=== PATIENT | female | born 1985 | race Caucasian/White ===

== ENCOUNTER 2017-10-20 23:20 | Emergency (ER) | payer SELFPAY ==
[2017-10-21] MEDS ORDERED: Ketorolac INJ* 30 MG/ML 1 ML VIAL IV PUSH ONE (01:29)
[2017-10-21] MEDS ORDERED: Clindamycin 600 MG IVPREMIX(* 600 MG/50 ML SDV IV ONE (01:29)
[2017-10-21 02:06] LABS: ABS Basophils 0.1 10^3/ul (0-0.2); ABS Eosinophils 0 10^3/ul (0-0.6); ABS Lymphocytes 1.9 10^3/ul (1.0-4.8); ABS Monocytes 1.3 10^3/ul (0-0.8); ABS Neutrophils 7.6 10^3/ul (1.5-7.7); ABS Nucleated RBC 0 10^3/ul; Eosinophil % 0.3 % (0-6); Hematocrit 42 % (35-47); Hemoglobin 14.5 g/dl (12.0-16.0); Lymphocyte % 17.4 % (25-47); Mean Corpuscular HGB Conc 34 g/dl (31-36); Mean Corpuscular Hemoglobin 32 pg (27-31); Mean Corpuscular Volume 94 fL (80-97); Mean Platelet Volume 7 um3 (7.4-10.4); Nucleated Red Blood Cells % 0; Platelet Count 309 10^3/ul (150-450); Red Blood Count 4.54 10^6/ul (4.0-5.4); Red Cell Distribution Width 13 % (10.5-15); White Blood Count 10.9 10^3/ul (3.5-10.8)
[2017-10-21 02:23] LABS: EGFR Non-African American 92.4 (>60)
[2017-10-21 04:38] VITALS: BP 116/72
--- NOTE | 2017-10-21 08:25 | ED ---
Payton Hinson Gabriel, scribed for Gustavo Camarillo MD on 10/21/17 at 0134 . Skin Complaint - HPI Summary HPI Summary: This patient is a 32 year old F presenting to [facility] accompanied by her mother with a chief complaint of redness and pain to R forearm that began 3 days ago. Pt states her right forearm redness secondary injection of methadone into her arm, she also has one on her back that she attributes to her MRSA. The patient rates the pain 7/10 in severity. Pt states her arm is swollen, painful, and hot. - History of Current Complaint Chief Complaint: EDRashSkinAbscess Time Seen by Provider: 10/21/17 01:14 Stated Complaint: ABSCESS Hx Obtained From: Patient Onset/Duration: Still Present Skin Exposure Onset/Duration: Days Ago - 3 Timing: Constant Onset Severity: Mild Current Severity: Severe Pain Intensity: 7 Pain Scale Used: 0-10 Numeric Skin Location: Other: - forearm and back Character: Swelling, Painful - Allergy/Home Medications Allergies/Adverse Reactions: Allergies Allergy/AdvReac Type Severity Reaction Status Date / Time No Known Allergies Allergy Verified 10/20/17 23:34 PMH/Surg Hx/FS Hx/Imm Hx History: Denies: Hx Benign Prostatic Hyperplasia Neurological History: Denies: Hx CVA Infectious Disease History: Yes Infectious Disease History: Denies: Traveled Outside the [place] in Last 30 Days - Family History Known Family History: Positive: Hypertension - Social History Alcohol Use: Occasionally Hx Substance Use: Yes Substance Use Type: Reports: Heroin Review of Systems Positive: Other - at right fore arm Skin: Other - swelling and warmth to right forearm and back All Other Systems Reviewed And Are Negative: Yes Physical Exam - Summary Physical Exam Summary: Appearance: Well-appearing, no distress, Well-nourished Skin: on the left forearm 12x5 cm area of erythema warmth, mild TTP; 2x3cm area of induration and erythema to left scapula area; nontender; no drainage Head: Normal Head/Face inspection Eyes: Conjunctiva clear ENT: Normal inspection Neck: Supple, no nodes, no JVD. Respiratory: Lungs clear, Normal breath sounds, no respiratory distress Cardio: RRR, No murmur, pulses normal, brisk capillary refill Abdomen: soft, nontender, no guarding, no rebound Bowel sounds: present Musculoskeletal: Strength Intact/ ROM intact. No calf tenderness. No edema. Neuro: Alert, muscle tone normal, facial symmetry, speech normal, sensory/motor intact Psychological: Normal Triage Information Reviewed: Yes Vital Signs On Initial Exam: Initial Vitals Temp Pulse Resp BP Pulse Ox 99.6 F 111 18 111/78 100 10/20/17 23:30 10/20/17 23:30 10/20/17 23:30 10/20/17 23:30 10/20/17 23:30 Vital Signs Reviewed: Yes Diagnostics - Vital Signs Vital Signs Temp Pulse Resp BP Pulse Ox 10/20/17 23:30 99.6 F 111 18 111/78 100 - Laboratory Lab Results: Lab Results 10/21/17 10/21/17 10/21/17 Range/Units 01:50 01:50 03:12 WBC 10.9 H (3.5-10.8) 10^3/ul RBC 4.54 (4.0-5.4) 10^6/ul Hgb 14.5 (12.0-16.0) g/dl Hct 42 (35-47) % MCV 94 (80-97) fL MCH 32 H (27-31) pg MCHC 34 (31-36) g/dl RDW 13 (10.5-15) % Plt Count 309 (150-450) 10^3/ul MPV 7 L (7.4-10.4) um3 Neut % (Auto) 69.7 (38-83) % Lymph % (Auto) 17.4 L (25-47) % [place] % (Auto) 11.9 H (0-7) % Eos % (Auto) 0.3 (0-6) % Baso % (Auto) 0.7 (0-2) % Absolute Neuts (auto) 7.6 (1.5-7.7) 10^3/ul Absolute Lymphs (auto) 1.9 (1.0-4.8) 10^3/ul Absolute Monos (auto) 1.3 H (0-0.8) 10^3/ul Absolute Eos (auto) 0 (0-0.6) 10^3/ul Absolute Basos (auto) 0.1 (0-0.2) 10^3/ul Absolute Nucleated RBC 0 10^3/ul Nucleated RBC % 0 Sodium 129 L (133-145) mmol/L Potassium TNP 3.9 Chloride 95 L (101-111) mmol/L Carbon Dioxide 26 (22-32) mmol/L Anion Gap 8 (2-11) mmol/L BUN 16 (6-24) mg/dL Creatinine 0.73 (0.51-0.95) mg/dL Est GFR ( Amer) 118.8 (>60) Est GFR (Non-Af Amer) 92.4 (>60) BUN/Creatinine Ratio 21.9 H (8-20) Glucose 98 (70-100) mg/dL Calcium 9.5 (8.6-10.3) mg/dL Total Bilirubin 0.60 (0.2-1.0) mg/dL AST TNP 76 H ALT 114 H (7-52) U/L Alkaline Phosphatase 69 (34-104) U/L Total Protein 7.7 (6.4-8.9) g/dL Albumin 4.2 (3.2-5.2) g/dL Globulin 3.5 (2-4) g/dL Albumin/Globulin Ratio 1.2 (1-3) Result Diagrams: 10/21/17 01:50 10/21/17 03:12 Lab Statement: Any lab studies that have been ordered have been reviewed, and results considered in the medical decision making process. Re-Evaluation - Re-Evaluation First Eval Change: Improved - Pt erythema improved with IV Toradol and Clindamycin. pt pain improved. Pt cellulitis outlined. Plan for oral abx and close f/u in 2-3 days Course/Dx - Differential Diagnoses - Skin Complaint Differential Diagnoses: Abscess, Cellulitis, Contact Dermatitis, Eczema, Urticaria - Diagnoses Provider Diagnoses: Cellulitis of forearm, right Discharge - Discharge Plan Condition: Improved Disposition: HOME Prescriptions: Clindamycin HCl 450 mg PO TID 10 Days #30 capsule Ketorolac TAB * [Toradol TAB *] 10 mg PO Q6H PRN 3 Days #10 tab PRN Reason: Pain Patient Education Materials: Cellulitis (ED) Referrals: No Primary Care Phys,NOPCP [Primary Care Provider] - 2 Days () Additional Instructions: Please return to [facility] Department in 2-3 days for repeat skin evaluation. Images - Images Full Body (No Head): 1 - erythema, warmth;; TTP-mild; no induration or abscess formation 2 - 2x3cm abscess The documentation as recorded by the Payton marie Gabriel accurately reflects the service I personally performed and the decisions made by , Gustavo Camarillo MD.
--- NOTE | 2017-10-21 19:02 | ED ---
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 Pt was DC'd on Clindamycin 450tid x 10 days and toradol for pain, but pt could not afford the clindamycin, so called the ED today and asked for her RX's to be sent to a pharmacy where she could use urgent RX. Pt was seen briefly by me in the ED waiting room at approximately 6:30pm when I gave her the urgent RX form. The area of redness had been outlined by Dr. Camarillo and pt had received one dose of IV clindamycin in the ED. The redness had progressed 1cm outside the outlined area on the upper part of the outlined area. There was no lymphangitic streaking, and pt had no bony tenderness. Pt was able to fully flex and extend her right elbow. There was no open area, and no abscess in the outlined area. Pt had been without antibiotics for approximately 12 hrs. Pt stated she did not have fever, stated she was not vomiting. Pt was ambulatory without assistance and was accompanied by a female friend "who is like a mother". I explained to the pt that clindamycin is covered on the urgent RX, but that I would change the dosing to 300mg qid, to ensure coverage and increase frequency of dosing, hoping to fight infection. I also advised the pt that toradol was not covered by urgent RX, but that I could prescribe ibuprofen 600mg qid prn. Pt declined to sign in the ER at this time, wanting to give the antibiotics a chance to be effective. The new area of increased redness was outlined in black pen by me. Pt's friend stated that she would awaken pt at 0600 10/22/17 to assess the redness and swelling after the clindamycin and would determine if she needed to return to the ED. Pt was ambulatory at MD from this encounter, with her urgent RX, and [facility] Re-Evaluation - Re-Evaluation First Eval Change: Improved - DR CAMARILLO'S EVALUATION: Pt erythema improved with IV Toradol and Clindamycin. pt pain improved. Pt cellulitis outlined. Plan for oral abx and close f/u in 2-3 days Course/Dx - Course Course Of Treatment: DISCHARGE HOME. CONDITION STABLE - Diagnoses Provider Diagnoses: Cellulitis of forearm, right
== END 2017-10-21 04:37 | disposition home or self-care (01) ==
LOC: ED 23:20
DX: L03.113 Cellulitis of right upper limb (principal)
CPT/HCPCS: 36415; 80053; 85025; 99283; J1885

== ENCOUNTER 2017-10-23 13:37 | Inpatient (IN) | payer MEDICAID ==
[2017-10-23] MEDS ORDERED: NS 0.9% 1000 ML* 1,000 ML IV ONE (14:38)
[2017-10-23] MEDS ORDERED: Vancomycin(*) 1,000 MG in NS 0.9% 250 ML* 250 ML IVPB ONE (14:38)
[2017-10-23 16:02] LABS: ABS Basophils 0 10^3/ul (0-0.2); ABS Eosinophils 0 10^3/ul (0-0.6); ABS Lymphocytes 1.4 10^3/ul (1.0-4.8); ABS Monocytes 0.3 10^3/ul (0-0.8); ABS Neutrophils 3.4 10^3/ul (1.5-7.7); ABS Nucleated RBC 0 10^3/ul; Eosinophil % 0.6 % (0-6); Hematocrit 50 % (35-47); Hemoglobin 16.6 g/dl (12.0-16.0); Lymphocyte % 26.7 % (25-47); Mean Corpuscular HGB Conc 33 g/dl (31-36); Mean Corpuscular Hemoglobin 32 pg (27-31); Mean Corpuscular Volume 97 fL (80-97); Nucleated Red Blood Cells % 0.2; Red Blood Count 5.16 10^6/ul (4.0-5.4); Red Cell Distribution Width 13 % (10.5-15); White Blood Count 5.1 10^3/ul (3.5-10.8)
[2017-10-23 16:53] LABS: EGFR Non-African American 115.9 (>60)
[2017-10-23 18:37] LABS: Mean Platelet Volume 7 um3 (7.4-10.4); Platelet Count 332 10^3/ul (150-450)
[2017-10-23] MEDS ORDERED: Vancomycin per Pharmacy* NOTE FOLLOW UP PRN (19:43)
[2017-10-23] MEDS ORDERED: Lidocaine 4% TOPICAL* 50 ML TOP.SOLN TOPICAL ONE (19:54)
[2017-10-23] MEDS ORDERED: HYDROmorphone INJ* 2 MG/ML CARPUJECT SYRINGE IV SLOW PU ONE ×2 (20:06→20:44)
[2017-10-23] MEDS ORDERED: HYDROmorphone INJ* 1 MG/ML CARPUJECT SYRINGE ONE (20:09)
--- NOTE | 2017-10-23 20:18 | RAD ---
INDICATION: Erythema, pain and swelling from the right wrist to the mid humerus COMPARISON: None. TECHNIQUE: Noncontrast CT examination of the right forearm. Axial images were acquired and sagittal and coronal reformats were created and independently analyzed. FINDINGS: There is diffuse subcutaneous infiltration from the risks to the distal forearm predominantly along the volar and ulnar margin of the forearm. There is more confluent attenuation in the subcutaneous tissue along the ulnar aspect of the mid-level forearm with subcutaneous fluid density material measuring up to 1.7 x 1.8 cm in the axial plane (axial image 62). This collection appears to measure approximately 9 cm in length on the sagittal plane images (image 30). IMPRESSION: CT findings are most consistent with a subcutaneous partially fluid and phlegmonous collection along the ulnar margin of the mid-level right forearm. If clinically warranted, determination of drainable fluid content can be better made with ultrasound.
[2017-10-23] MEDS ORDERED: Lidocaine 1%* 5 ML VIAL ONE (20:20)
[2017-10-23] MEDS ORDERED: Midazolam* 1 MG/ML 10 ML VIAL (10 MG) ONE (20:25)
[2017-10-23] MEDS ORDERED: Midazolam* 1 MG/ML 5 ML VIAL (5 MG) IV ONE (20:44)
[2017-10-23] MEDS ORDERED: Lidocaine 1%* 5 ML VIAL INJ ONE (20:50)
[2017-10-23] MEDS ORDERED: Midazolam* 1 MG/ML 10 ML VIAL (10 MG) IV ONE (20:50)
[2017-10-23] MEDS ORDERED: HYDROmorphone INJ* 1 MG/ML CARPUJECT SYRINGE IV SLOW PU ONE (21:00)
[2017-10-24] MEDS: oxyCODONE/Acetamin 5/325 MG* TAB PO PRN ×4 (01:36→23:57)
[2017-10-24] MEDS: Vancomycin(*) 1,000 MG in NS 0.9% 250 ML* 250 ML IVPB SCH ×4 (02:00→19:48)
--- NOTE | 2017-10-24 04:16 | HP ---
CC: Dr. Marks * ADMISSION HISTORY AND PHYSICAL: DATE OF ADMISSION: 10/23/17 PRIMARY CARE PHYSICIAN: None. ATTENDING FOR THIS ADMISSION: Belkis Oliva MD. * (DICTATED BY SONIYA LOPEZ NP) CHIEF COMPLAINT: Right upper extremity pain and redness. HISTORY OF PRESENT ILLNESS: This is a 32-year-old female patient who came to the emergency department on the of this month for cellulitis of the right arm. She was placed on clindamycin, margins for the cellulitis were marked multiple times. She came back for a second visit because the redness on the arm was getting worse, not better. She had been taking the clindamycin. The dose had been increased; however, she still had no relief. She came back to the emergency department today for additional evaluation. We were asked to see the patient as her cellulitis seemed to be increasing. She had some fluctuant areas around the forearm and, at that point, emergency department felt it is warranted to admit her to medical service for failure of outpatient treatment. PAST MEDICAL HISTORY: Significant for IV drug use only. MEDICATIONS AT HOME: None. FAMILY HISTORY: Hypertension, unknown who has that. 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 REVIEW OF SYSTEMS: The patient is awake, in a moderate amount of distress, complaining of severe pain in the right upper extremity, unable to move her arm secondary to pain and swelling. The patient denies any fever, fatigue or chills. No headache. No nausea or vomiting. No urinary complaints and no further constitutional complaints. PHYSICAL EXAMINATION GENERAL: The patient is in significant amount of pain. HEENT: The patient is atraumatic, normocephalic. PERRLA with nonicteric sclerae. NECK: Supple. Nontender. No JVD noted. No thyromegaly appreciated. She has a right EJ, 20-gauge, in the neck. Dressing is clean, dry, and intact. LUNGS: Clear bilaterally to auscultation with no wheezing, rhonchi, or rales. CARDIOVASCULAR: S1, S2 are present. No murmurs, gallops, or rubs. ABDOMEN: Soft, nontender, nondistended. She has positive bowel sounds in all 4 quadrants. Normoactive. MUSCULOSKELETAL: There is no clubbing and no cyanosis. Her right forearm from approximately the elbow down to the hand is severely erythematous and edematous. She has areas of fluctuance. About midway down the right forearm on the ulnar aspect of the arm, she also has some bluish discoloration, appears to be where she injected methadone a couple of days ago before this started. NEUROLOGIC: The patient is grossly intact. There is no focal deficits. PSYCHIATRIC: She is cooperative and appropriate. DIAGNOSTIC STUDIES AND LABORATORY DATA: Show WBC 5.1, RBC 5.16, hemoglobin 16.6, hematocrit 50, MCV 97, MCH 32, platelets 332. Sodium 130, potassium 4.0, chloride 100, CO2 23, BUN 15, creatinine 0.60. GFR is 115.9. BUN and creatinine ratio is 25. Glucose 92, calcium 9.1. AST 66, ALT 99, alkaline phosphatase 75, protein 7.8, albumin 4.2, globulin 3.6. Imaging: The patient was unable to get through ultrasound of the arm secondary to pain with palpation. We sent her for a CAT scan instead, which showed findings are most consistent with a subcutaneous, partially fluid and phlegmonous collection along the ulnar margin of the mid level right forearm. If clinically warranted, determination of drainable fluid content could be better made with ultrasound. Again, on the ultrasound, she was unable to get through, but initially we could see that there was definitely a fluid collection at the beginning of the study. IMPRESSION: This is a 32-year-old female patient with history of IV drug use, failed conservative treatment for an abscess of the right upper extremity, on clindamycin, now will be admitted for intravenous antibiotics and I and D. PLAN: I reached out to Dr. Rene Marks who is surgical on-call, came in to assess the patient and evaluate her CAT scan. Bedside I and D was performed with conscious sedation in the emergency department. Please see conscious sedation notes and medications for that procedure. Please see Dr. Marks's dictation on his consultation for the procedure as well and operative report. The patient has received vancomycin 1 dose in the emergency department. She will continue to receive vancomycin per pharmacy protocol. We will have Infectious Disease see her tomorrow as well. The patient states a remote history of MRSA in the past of wounds, unsure if she has ever had MRSA in the blood at this point, so we will continue to cover her on vancomycin until the cultures come back. Wound cultures from the procedure were sent for culture and Gram stain. This will also be followed as well as blood cultures. We will check the patient's CBC in the morning because she does have quite a bit of bloody drainage to ensure that her hemoglobin remains stable. Also of note, she had a liter of fluid, IV normal saline in the emergency department. She will continue to have IV normal saline at maintenance post procedure. The patient can have a regular diet. For DVT prophylaxis, she is low risk and ambulatory. As long as she is up and walking, she can walk ad leonard. I do not feel she needs heparin at this point, especially with the significant amount of bleeding secondary to her procedure. She is a full code. The patient is homeless. She does have a friend or family member who was at the bedside initially. The patient is quite sedate right now, so we can discuss further with her who her emergency contacts or healthcare proxy would be in the event she could not speak for herself. The rest of the patient's course will be determined by further diagnostics, laboratories or any other input from other providers as warranted during this admission. We will continue to monitor the patient closely throughout the course of this admission. SONIYA LOPEZ NP [id number]/[facility] #: [id number] KULWINDER
--- NOTE | 2017-10-24 08:03 | PN ---
Subjective Date of Service: 10/24/17 Interval History: Pt is feeling quite tired today. She states she continues to have pain in her R forearm. When asked about her h/o addiction she states she had been clean for 3 years and that this was a stupid slip up. Objective Active Medications: Vancomycin HCl 1,000 mg/ (Sodium Chloride) 250 mls @ 166.667 mls/hr IVPB Q8H DONALD Last Admin: 10/24/17 02:00 Dose: 166.667 mls/hr Oxycodone/Acetaminophen (Percocet 5/325 Tab*) 1 tab PO Q4H PRN PRN Reason: PAIN Last Admin: 10/24/17 01:36 Dose: 1 tab Pharmacy Consult (Vancomycin Per Pharmacy*) 1 note FOLLOW UP . PRN PRN Reason: PER PROTOCOL Pharmacy Profile Note (Vancomycin Trough Check) 1 note FOLLOW UP ONCE ONE Stop: 10/25/17 09:31 Vital Signs - 8 hr 10/23/17 10/24/17 10/24/17 23:55 01:04 01:36 Temperature 98.1 F 101.4 F Pulse Rate 97 104 Respiratory 16 16 18 Rate Blood Pressure 118/59 114/52 (mmHg) O2 Sat by Pulse 99 96 Oximetry 10/24/17 10/24/17 10/24/17 03:07 03:36 05:18 Temperature 100.4 F 99.2 F Pulse Rate 87 78 Respiratory 16 16 16 Rate Blood Pressure 104/54 99/58 (mmHg) O2 Sat by Pulse 97 98 Oximetry Oxygen Devices in Use Now: None Appearance: Young female lying in bed sleeping, awakens to voice, NAD Eyes: No Scleral Icterus Ears/Nose/Mouth/Throat: Mucous Membranes Moist Respiratory: Symmetrical Chest Expansion and Respiratory Effort, Clear to Auscultation Cardiovascular: NL Sounds; No Murmurs; No JVD, RRR, No Edema Abdominal: NL Sounds; No Tenderness; No Distention Extremities: No Clubbing, Cyanosis Skin: No Nodules or Sclerosis, - - R forearm wrapped in clean dry dressing, R hand moderately edematous, slight erythema overlying the elbow and lower posterior upper arm Neurological: Alert and Oriented x 3 Result Diagrams: 10/23/17 18:26 10/23/17 18:26 Microbiology and Other Data: Microbiology 10/23/17 20:30 Gram Stain - Final Wound Assess/Plan/Problems-Billing Ms Rodriguez is a 32 yo F who has a past h/o IVDA who states she "slipped up" last week and injected methadone who no presents to the ER for the 3rd time with worsened erythema and was found to have an abscess that has now been I&D'd. - Patient Problems (1) Cellulitis and abscess of other specified site Current Visit: Yes Status: Acute Code(s): L03.818 - CELLULITIS OF OTHER SITES; L02.818 - CUTANEOUS ABSCESS OF OTHER SITES SNOMED Code(s): 67511795 Comment: The patient has cellulitis and abscess of the R forearm. The abscess was I&D'd in the ER last night by Dr. Marks. Will continue vancomycin for now but ask for ID consult for abx choice. So far the culture is negative and the gram stain shows no organisms. Blood cultures are pending. (2) IV drug abuse Current Visit: Yes Status: Acute Code(s): F19.10 - OTHER PSYCHOACTIVE SUBSTANCE ABUSE, UNCOMPLICATED SNOMED Code(s): 174336947 Comment: SW eval today but pt states she has been clean for the last 3 years. (3) DVT prophylaxis Current Visit: Yes Status: Acute Code(s): ZTY5513 - SNOMED Code(s): 272435642 Comment: ambulation (4) Full code status Current Visit: Yes Status: Acute Code(s): Z78.9 - OTHER SPECIFIED HEALTH STATUS SNOMED Code(s): 968378597
--- NOTE | 2017-10-24 12:08 | ED ---
Katherin Hinson Thomas, scribed for Riley Estrada MD on 10/23/17 at 1429 . Skin Complaint - HPI Summary HPI Summary: The patient is a 32 year old female who was evaluated three days ago at [facility] for cellulitis on her right arm. She has been on clindamycin for the last three days. She rates the pain 10/10. She reports that the cellulitis is worse compared to three days ago. - History of Current Complaint Chief Complaint: EDGeneral Time Seen by Provider: 10/23/17 14:05 Stated Complaint: SWELLING ON RT ARM Hx Obtained From: Patient Onset/Duration: Started Days Ago, Still Present Timing: Constant Current Severity: Severe Pain Intensity: 10 Pain Scale Used: 0-10 Numeric Skin Location: Arm - right Character: Pain Alleviating Symptom(s): Nothing Associated Signs & Symptoms: Negative - fever - Allergy/Home Medications Allergies/Adverse Reactions: Allergies Allergy/AdvReac Type Severity Reaction Status Date / Time No Known Allergies Allergy Verified 10/23/17 13:49 PMH/Surg Hx/FS Hx/Imm Hx History: Denies: Hx Benign Prostatic Hyperplasia Neurological History: Denies: Hx CVA Infectious Disease History: Yes Infectious Disease History: Denies: Traveled Outside the [place] in Last 30 Days - Family History Known Family History: Positive: Hypertension - Social History Alcohol Use: Occasionally Hx Substance Use: Yes Substance Use Type: Reports: Heroin Smoking Status (MU): Light Every Day Tobacco Smoker Review of Systems Negative: Fever Positive: Other - Right arm cellulitis All Other Systems Reviewed And Are Negative: Yes Physical Exam - Summary Physical Exam Summary: Appearance: The patient is well-nourished in no acute distress and in no acute pain. Skin: She has cellulitis of her right forearm that goes up the right elbow dorsally and into the right hand dorsally. It extends 6 cm beyond the line on the volar forearm. HEENT: The head is normocephalic and atraumatic. The pupils are equal and reactive. The conjunctivae are clear and without drainage. Nares are patent and without drainage. Mouth reveals moist mucous membranes and the throat is without erythema and exudate. The external ears are intact. The ear canals are patent and without drainage. The tympanic membranes are intact. Neck: the neck is supple with full range of motion and non-tender. There are no carotid bruits. There is no neck vein distension. Respiratory: Chest is non-tender. Lungs are clear to auscultation and breath sounds are symmetrical and equal. Cardiovascular: Heart is regular rate and rhythm. There is no murmur or rub auscultated. There is no peripheral edema and pulses are symmetrical and equal. Abdomen: The abdomen is soft and non-tender. There are normal bowel sounds heard in all four quadrants and there is no organomegaly palpated. Musculoskeletal: There is no back tenderness noted. Extremities are non-tender with full range of motion. There is good capillary refill. There is no peripheral edema or calf tenderness elicited. Neurological: Patient is alert and oriented to person, place and time. The patient has symmetrical motor strength in all four extremities. Cranial nerves are grossly intact. Deep tendon reflexes are symmetrical and equal in all four extremities. Psychiatric: The patient has an appropriate affect and does not exhibit any anxiety or depression. Triage Information Reviewed: Yes Vital Signs On Initial Exam: Initial Vitals Temp Pulse Resp BP Pulse Ox 98.8 F 82 20 123/69 96 10/23/17 13:41 10/23/17 13:41 10/23/17 13:41 10/23/17 13:41 10/23/17 13:41 Vital Signs Reviewed: Yes Diagnostics - Vital Signs Vital Signs Temp Pulse Resp BP Pulse Ox 10/23/17 13:41 98.8 F 82 20 123/69 96 - Laboratory Lab Results: Lab Results 10/23/17 10/23/17 10/23/17 Range/Units 15:27 15:27 18:26 WBC 5.1 (3.5-10.8) 10^3/ul RBC 5.16 (4.0-5.4) 10^6/ul Hgb 16.6 H (12.0-16.0) g/dl Hct 50 H (35-47) % MCV 97 (80-97) fL MCH 32 H (27-31) pg MCHC 33 (31-36) g/dl RDW 13 (10.5-15) % Plt Count TNP MPV TNP Neut % (Auto) 66.6 (38-83) % Lymph % (Auto) 26.7 (25-47) % [place] % (Auto) 5.8 (0-7) % Eos % (Auto) 0.6 (0-6) % Baso % (Auto) 0.3 (0-2) % Absolute Neuts (auto) 3.4 (1.5-7.7) 10^3/ul Absolute Lymphs (auto) 1.4 (1.0-4.8) 10^3/ul Absolute Monos (auto) 0.3 (0-0.8) 10^3/ul Absolute Eos (auto) 0 (0-0.6) 10^3/ul Absolute Basos (auto) 0 (0-0.2) 10^3/ul Absolute Nucleated RBC 0 10^3/ul Nucleated RBC % 0.2 Sodium 130 L (133-145) mmol/L Potassium TNP 4.0 Chloride 100 L (101-111) mmol/L Carbon Dioxide 23 (22-32) mmol/L Anion Gap 7 (2-11) mmol/L BUN 15 (6-24) mg/dL Creatinine 0.60 (0.51-0.95) mg/dL Est GFR ( Amer) 149.0 (>60) Est GFR (Non-Af Amer) 115.9 (>60) BUN/Creatinine Ratio 25.0 H (8-20) Glucose 92 (70-100) mg/dL Calcium 9.1 (8.6-10.3) mg/dL Total Bilirubin 0.40 (0.2-1.0) mg/dL AST TNP 66 H ALT 99 H (7-52) U/L Alkaline Phosphatase 75 (34-104) U/L Total Protein 7.8 (6.4-8.9) g/dL Albumin 4.2 (3.2-5.2) g/dL Globulin 3.6 (2-4) g/dL Albumin/Globulin Ratio 1.2 (1-3) 10/23/17 Range/Units 18:26 WBC (3.5-10.8) 10^3/ul RBC (4.0-5.4) 10^6/ul Hgb (12.0-16.0) g/dl Hct (35-47) % MCV (80-97) fL MCH (27-31) pg MCHC (31-36) g/dl RDW (10.5-15) % Plt Count 332 MPV 7 L Neut % (Auto) (38-83) % Lymph % (Auto) (25-47) % [place] % (Auto) (0-7) % Eos % (Auto) (0-6) % Baso % (Auto) (0-2) % Absolute Neuts (auto) (1.5-7.7) 10^3/ul Absolute Lymphs (auto) (1.0-4.8) 10^3/ul Absolute Monos (auto) (0-0.8) 10^3/ul Absolute Eos (auto) (0-0.6) 10^3/ul Absolute Basos (auto) (0-0.2) 10^3/ul Absolute Nucleated RBC 10^3/ul Nucleated RBC % Sodium (133-145) mmol/L Potassium Chloride (101-111) mmol/L Carbon Dioxide (22-32) mmol/L Anion Gap (2-11) mmol/L BUN (6-24) mg/dL Creatinine (0.51-0.95) mg/dL Est GFR ( Amer) (>60) Est GFR (Non-Af Amer) (>60) BUN/Creatinine Ratio (8-20) Glucose (70-100) mg/dL Calcium (8.6-10.3) mg/dL Total Bilirubin (0.2-1.0) mg/dL AST ALT (7-52) U/L Alkaline Phosphatase (34-104) U/L Total Protein (6.4-8.9) g/dL Albumin (3.2-5.2) g/dL Globulin (2-4) g/dL Albumin/Globulin Ratio (1-3) Result Diagrams: 10/23/17 18:26 10/23/17 18:26 Lab Statement: Any lab studies that have been ordered have been reviewed, and results considered in the medical decision making process. - CT CT Upper Extremity CT Interpretation: Positive (See Comments) - CT findings are most consistent with a subcutaneous partially fluid and phlegmonous collection along the ulnar margin of the mid-level right forearm. If clinically warranted, determination of drainable fluid content can be better made with ultrasound. Dr. Estrada has reviewed this report. CT Interpretation Completed By: Radiologist Re-Evaluation - Re-Evaluation First Eval Re-Evaluation Time: 19:28 Comment: Results discussed. Patient will be seen by the hospitalists. Course/Dx - Course Course Of Treatment: Ms. Terris has an obvious cellulitis and probable abscess on her right arm which has failed outpatient clindamycin (over two days). She was very difficult to get IV access secondary to her history of IVDA and her low pain threshold. Once we had it, she was given vancomycin and fluids. She is being admitted for IV antibiotics and I&D. - Diagnoses Provider Diagnoses: Cellulitis, Abscess - Physician Notifications Discussed Care Of Patient With: Belkis Oliva Time Discussed With Above Provider: 19:28 Instructed by Provider To: Admit As Inpatient Discharge - Discharge Plan Condition: Stable Disposition: ADMITTED TO [facility] The documentation as recorded by the Katherin marie Thomas accurately reflects the service I personally performed and the decisions made by me, Riley Estrada MD.
--- NOTE | 2017-10-24 13:58 | PN ---
Progress Note - Progress Note Date of Service: 10/24/17 Note: Surgery Progress: S: s/p I&D of Right forearm abscess 10/[address] Marks. On Vanco. She states that pain is somewhat less. Dressing has not yet been changed. O: tmax 101.4 Vital Signs - 8 hr 10/24/17 10/24/17 07:37 08:00 Temperature 98.9 F Pulse Rate 88 Respiratory 16 16 Rate Blood Pressure 107/62 (mmHg) O2 Sat by Pulse 97 Oximetry Right forearm: dressing removed; moderate sanguinopurulent drainage. Moderately tender. Edema extending from hand to distal upper arm with will-wound erythema that appears to be receding. Open wound measures ~ 3 x 1 cm and probes posteriorly to a depth of ~ 1 cm. Small amt of add'l purulent drainage expressed from the wound. New 1/2" plain saline-moistened pkg replaced which she tolerated reasonably well. Dry cover dressing replaced. C&S: no growth thus far (but does have past hx of + MRSA) A: Right forearm abscess, s/p I&D P: cont Vanco (or per hospitalist or ID); cont local wound care. Will cont to follow.
--- NOTE | 2017-10-24 14:13 | OP ---
DATE OF OPERATION: 10/23/17 - ROOM #343 DATE OF : 85 SURGEON: Rene Marks MD. CUSTOMER SERVICE AND SALES CONSULTANT: None. ANESTHESIOLOGIST: None. PRE-OP DIAGNOSIS: POST-OP DIAGNOSIS: OPERATIVE PROCEDURE: Incision and drainage of right arm. INDICATIONS: This patient is a 32-year-old female with a history of IV drug abuse that was injected into her right arm and has had a cellulitis. She was treated as an outpatient with oral antibiotics and had increasing pain and swelling and tenderness of the arm and thus presented to the emergency room. On examination today in the emergency room, the right forearm is about 50% larger than normal. It is edematous and erythematous across the posterior aspect and there is an area of maximal tenderness with some fluctuance, maybe 5 to 10 cm distal to the olecranon. This has been scanned with an ultrasound and appears to have an abscess cavity. There is a CT scan which, to my eyes, is inconclusive. Given the failure of outpatient antibiotics and the increasing swelling and pain and fluctuance, I think incision and drainage is warranted. I have discussed with the patient who decided that incision and drainage would be carried out here in the emergency room. DESCRIPTION OF PROCEDURE: Therefore, the area was prepped with antiseptic, draped in a sterile fashion. The patient was given intravenous analgesia and anxiolysis and is kept monitored. Local anesthetic 1% plain lidocaine is utilized, a total of about 15 mL and an incision of about 4 cm is created. Purulent fluid and blood is forthcoming. The purulence is captured with a culture swab and sent for Gram stain and culture. The patient is still in a lot of pain when trying to probe deeper into the wound, so I really was not able to probe the deeper tissues, but upon looking at the CT scan, there was no evidence of any air in the deeper tissues and it really did not seem to extend into the muscles as far as I could see, so it was felt best to leave it be at this point. Therefore, a bulky gauze dressing is placed followed by a Kerlix wrap. She is in good condition with good vital signs at the completion of the procedure. SPECIMEN: Culture. ESTIMATED BLOOD LOSS: 20 mL. [id number]/[facility] #: [id number] MTDD
--- NOTE | 2017-10-24 14:39 | CONS ---
CONSULTATION REPORT: DATE OF CONSULT: 10/24/17 REQUESTING PHYSICIAN: Dr. Josue. CONSULTING SERVICE: Infectious Disease. REASON FOR CONSULTATION: Right forearm abscess and phlegmon. IMPRESSION: 1. Right forearm abscess and cellulitis, complication of injection drug use. She was on clindamycin, had a bedside I and D yesterday. The Gram stain showed neutrophils, no organisms. Cultures negative 24 hours. It is probably because she was on clindamycin, which may have impaired growth in culture of organisms or sterilized the fluid. The microbiologic differential include staph and viridans group strep. 2. Injection drug use, in brief remission. 3. Transaminitis, reports negative hepatitis C testing a few months ago while she was in senior living. RECOMMENDATIONS: 1. Continue vancomycin goal trough 10 to 15. 2. Hepatitis C, hepatitis B, and HIV antibodies. HISTORY OF PRESENT ILLNESS: A 32-year-old woman with past injection drug use, who relapsed about a week and a half ago using methamphetamine. She has developed right forearm swelling, pain and redness with fevers, chills, and sweats at home. She was seen in the emergency room, prescribed clindamycin, had progression of her symptoms despite taking clindamycin. Because of worsening symptoms, she came to the hospital on . She had a CT scan that showed a right forearm phlegmon and abscess. Dr. Marks saw her and did a bedside incision and debridement. The Gram stain was also reported as above. She has been on vancomycin, tolerating it well. She thinks her swelling in her hand is down a little bit and the pain is tolerable as it was this morning when they changed her packing. She has had fever overnight to 38.6. She had blood cultures sent, which are pending. She has no fever this morning. PAST MEDICAL HISTORY: Injection drug use, in brief remission. MEDICATIONS: 1. Dilaudid as needed. 2. Oxycodone as needed. 3. Vancomycin 1 g every 8 hours. ALLERGIES: No known drug allergies. FAMILY HISTORY: No recurrent infections. SOCIAL HISTORY: She is staying with a friend. She has been homeless. She was in senior living. REVIEW OF SYSTEMS: A 14-point review of systems was negative except as noted above. PHYSICAL EXAM: Vital Signs: Temperature 37, heart rate 80, respiratory rate 16 , blood pressure 107/62, oxygen saturation 97% on room air. In general, she is awake, not in distress. Neurologic: She is oriented x3, follows commands. HEENT: There is no conjunctival hemorrhage. Oropharynx without lesions. Neck: Supple without nuchal rigidity. Lymph Nodes: There is no cervical, supraclavicular, inguinal, axillary or epitrochlear lymphadenopathy. Heart is regular rate and rhythm without murmurs, rubs or gallops. Lungs are clear to auscultation bilaterally. Abdomen: Soft, nontender, nondistended. There are bowel sounds present. Skin: There is no rash or splinter hemorrhages. Musculoskeletal: No spine tenderness to palpation. No joint synovitis. Right forearm incision with mild surrounding erythema. There is diffuse edema from her fingers to above her elbow. There is no elbow tenderness or decreased range of motion. DIAGNOSTIC STUDIES/LAB DATA: White blood cell count 5, hemoglobin 16, platelets 332,000. Creatinine 0.6. ALT 99, AST 66, bilirubin 0.4. Please see impressions and recommendations outlined above. Thank you for asking me to see Ms. Rodriguez in consultation. [id number]/[facility] #: [id number] MTDD
[2017-10-24] MEDS ORDERED: Nicotine Inhaler* 10 MG AMP INH PRN (22:29)
[2017-10-24] MEDS ORDERED: Mouth Piece, Nicotine* 1 EACH CARTRIDGE INH PRN ×2 (22:29)
[2017-10-25] MEDS: Vancomycin(*) 1,000 MG in NS 0.9% 250 ML* 250 ML IVPB SCH ×3 (03:36→17:44)
[2017-10-25] MEDS: oxyCODONE/Acetamin 5/325 MG* TAB PO PRN ×3 (04:16→20:41)
[2017-10-25] MEDS ORDERED: Vancomycin Trough Check NOTE FOLLOW UP ONE (09:30)
--- NOTE | 2017-10-25 10:00 | PN ---
Progress Note - Progress Note Date of Service: 10/25/17 SOAP: Subjective:POD#2 s/p I&D right forearm abscess;slightly less painful [] Objective:[id number] 10/24,98.1 this morning;premedicated with oxycodone/ acetaminophen right forearm with open wound posterior aspect,sanguinopurulent drainage, resolving erythema,edema right hand extends to distal upper arm but pt says is decreasing;wound measures [id number],flushed with NS and packed with saline moistened 1/2" plain nugauze,bulky 4x4s and lázaro dressing applied,pt tolerated fairly well [] Assessment:afebrile on Vanco;C&S no growth,no MRSA day1 [] Plan:continue IV antibiotics and local wound care []
--- NOTE | 2017-10-25 14:59 | PN ---
Subjective Date of Service: 10/25/17 Interval History: Pt is feeling ok. She continues to have discomfort in her R arm. She has been up and walking. Objective Active Medications: Amoxicillin/Clavulanate Potassium (Augmentin Tab*) 500 mg PO BID DONALD Device (Nicotine Mouth Piece*) 1 each INH .USE WITH NICOTROL PRN PRN Reason: CRAVING Last Admin: 10/24/17 22:42 Dose: 1 each Vancomycin HCl 1,000 mg/ (Sodium Chloride) 250 mls @ 166.667 mls/hr IVPB Q8H DONALD Last Admin: 10/25/17 10:54 Dose: 166.667 mls/hr Nicotine (Nicotine Inhaler*) 10 mg INH Q2H PRN PRN Reason: CRAVING Last Admin: 10/24/17 22:42 Dose: 10 mg Oxycodone/Acetaminophen (Percocet 5/325 Tab*) 1 tab PO Q4H PRN PRN Reason: PAIN Last Admin: 10/25/17 09:31 Dose: 1 tab Pharmacy Consult (Vancomycin Per Pharmacy*) 1 note FOLLOW UP . PRN PRN Reason: PER PROTOCOL Vital Signs - 8 hr 10/25/17 10/25/17 10/25/17 07:09 08:21 09:31 Temperature 98.1 F Pulse Rate 63 Respiratory 16 16 16 Rate Blood Pressure 120/67 (mmHg) O2 Sat by Pulse 97 Oximetry 10/25/17 10/25/17 11:07 12:01 Temperature 98.4 F Pulse Rate 79 Respiratory 16 16 Rate Blood Pressure 124/69 (mmHg) O2 Sat by Pulse 100 Oximetry Oxygen Devices in Use Now: None Appearance: Young female sitting up in bed, NAD Eyes: No Scleral Icterus Ears/Nose/Mouth/Throat: Mucous Membranes Moist Respiratory: Symmetrical Chest Expansion and Respiratory Effort, Clear to Auscultation Cardiovascular: NL Sounds; No Murmurs; No JVD, RRR, No Edema Abdominal: NL Sounds; No Tenderness; No Distention Extremities: No Clubbing, Cyanosis Skin: No Nodules or Sclerosis, - - R forearm with clean dry dressing, persistent swelling of R forearm, no significant erythema Neurological: Alert and Oriented x 3 Result Diagrams: 10/23/17 18:26 10/23/17 18:26 Additional Lab and Data: Lab Results 03/18/18 03/18/18 03/18/18 Range/Units 15:27 15:27 18:26 WBC 5.1 (3.5-10.8) 10^3/ul RBC 5.16 (4.0-5.4) 10^6/ul Hgb 16.6 H (12.0-16.0) g/dl Hct 50 H (35-47) % MCV 97 (80-97) fL MCH 32 H (27-31) pg MCHC 33 (31-36) g/dl RDW 13 (10.5-15) % Plt Count TNP MPV TNP Neut % (Auto) 66.6 (38-83) % Lymph % (Auto) 26.7 (25-47) % [place] % (Auto) 5.8 (0-7) % Eos % (Auto) 0.6 (0-6) % Baso % (Auto) 0.3 (0-2) % Absolute Neuts (auto) 3.4 (1.5-7.7) 10^3/ul Absolute Lymphs (auto) 1.4 (1.0-4.8) 10^3/ul Absolute Monos (auto) 0.3 (0-0.8) 10^3/ul Absolute Eos (auto) 0 (0-0.6) 10^3/ul Absolute Basos (auto) 0 (0-0.2) 10^3/ul Absolute Nucleated RBC 0 10^3/ul Nucleated RBC % 0.2 Sodium 130 L (133-145) mmol/L Potassium TNP 4.0 Chloride 100 L (101-111) mmol/L Carbon Dioxide 23 (22-32) mmol/L Anion Gap 7 (2-11) mmol/L BUN 15 (6-24) mg/dL Creatinine 0.60 (0.51-0.95) mg/dL Est GFR ( Amer) 149.0 (>60) Est GFR (Non-Af Amer) 115.9 (>60) BUN/Creatinine Ratio 25.0 H (8-20) Glucose 92 (70-100) mg/dL Calcium 9.1 (8.6-10.3) mg/dL Total Bilirubin 0.40 (0.2-1.0) mg/dL AST TNP 66 H ALT 99 H (7-52) U/L Alkaline Phosphatase 75 (34-104) U/L Total Protein 7.8 (6.4-8.9) g/dL Albumin 4.2 (3.2-5.2) g/dL Globulin 3.6 (2-4) g/dL Albumin/Globulin Ratio 1.2 (1-3) /18/18 Range/Units 18:26 WBC (3.5-10.8) 10^3/ul RBC (4.0-5.4) 10^6/ul Hgb (12.0-16.0) g/dl Hct (35-47) % MCV (80-97) fL MCH (27-31) pg MCHC (31-36) g/dl RDW (10.5-15) % Plt Count 332 MPV 7 L Neut % (Auto) (38-83) % Lymph % (Auto) (25-47) % [place] % (Auto) (0-7) % Eos % (Auto) (0-6) % Baso % (Auto) (0-2) % Absolute Neuts (auto) (1.5-7.7) 10^3/ul Absolute Lymphs (auto) (1.0-4.8) 10^3/ul Absolute Monos (auto) (0-0.8) 10^3/ul Absolute Eos (auto) (0-0.6) 10^3/ul Absolute Basos (auto) (0-0.2) 10^3/ul Absolute Nucleated RBC 10^3/ul Nucleated RBC % Sodium (133-145) mmol/L Potassium Chloride (101-111) mmol/L Carbon Dioxide (22-32) mmol/L Anion Gap (2-11) mmol/L BUN (6-24) mg/dL Creatinine (0.51-0.95) mg/dL Est GFR ( Amer) (>60) Est GFR (Non-Af Amer) (>60) BUN/Creatinine Ratio (8-20) Glucose (70-100) mg/dL Calcium (8.6-10.3) mg/dL Total Bilirubin (0.2-1.0) mg/dL AST ALT (7-52) U/L Alkaline Phosphatase (34-104) U/L Total Protein (6.4-8.9) g/dL Albumin (3.2-5.2) g/dL Globulin (2-4) g/dL Albumin/Globulin Ratio (1-3) Microbiology and Other Data: Microbiology 10/23/17 20:30 Gram Stain - Final Wound Assess/Plan/Problems-Billing Ms Rodriguez is a 32 yo F who has a past h/o IVDA who states she "slipped up" last week and injected methadone who no presents to the ER for the 3rd time with worsened erythema and was found to have an abscess that has now been I&D'd. - Patient Problems (1) Cellulitis and abscess of other specified site Current Visit: Yes Status: Acute Code(s): L03.818 - CELLULITIS OF OTHER SITES; L02.818 - CUTANEOUS ABSCESS OF OTHER SITES SNOMED Code(s): 16354179 Comment: The patient has cellulitis and abscess of the R forearm. The abscess was I&D'd in the ER by Dr. Marks. Will continue vancomycin and augmentin per ID. So far the culture is negative and the gram stain shows no organisms. Blood cultures show one of two bottles of staph epidermidis. (2) IV drug abuse Current Visit: Yes Status: Acute Code(s): F19.10 - OTHER PSYCHOACTIVE SUBSTANCE ABUSE, UNCOMPLICATED SNOMED Code(s): 740046508 Comment: Continue to encourage abstinence. (3) DVT prophylaxis Current Visit: Yes Status: Acute Code(s): EQJ8256 - SNOMED Code(s): 230681071 Comment: ambulation (4) Full code status Current Visit: Yes Status: Acute Code(s): Z78.9 - OTHER SPECIFIED HEALTH STATUS SNOMED Code(s): 670645401
--- NOTE | 2017-10-25 15:06 | PN ---
Progress Note - Progress Note Date of Service: 10/25/17 SOAP: Subjective: CC: right arm infection HPI: 32 year old woman with IVDU in brief remission, right arm abscess s/p I&D. Right hand and forearm less swollen, pain improved. No fever rash or diarrhea. Objective: Vital Signs Temp 36.9 C 10/25/17 11:07 Pulse 79 10/25/17 11:07 Resp 16 10/25/17 12:01 BP 124/69 10/25/17 11:07 Pulse Ox 100 10/25/17 11:07 Intake & Output 10/24/17 10/25/17 10/25/17 18:59 06:59 18:59 Intake Total 620 1535 200 Output Total 800 650 Balance -180 1535 -450 Intake: IV Fluids 575 ABX - VANCOMYCIN 575 Oral 620 960 200 Output: Urine 800 650 Gen:awake, no distress HEENT:PERRL, no thrush Heart:RRR no murmur Lungs:CTA BL Abd:+BS NTND soft Skin: no rash MSK: R forearm incision serous draining Microbiology 10/23/17 20:30 Gram Stain - Final Wound Wound Culture - Final No Growth Day 2 10/23/17 20:24 Aerobic Blood Culture - Preliminary Blood Venous No Growth Day 1 Anaerobic Blood Culture - Preliminary Staphylococcus Epidermidis Blood MRSA/MSSA (PCR) - Final Mrsa Negative S.aureus Negative Assessment: 1. right forearm abscess s/p I&D 2. IVDU in brief remission 3. HCV Ab+ Plan: 1. continue vancomycin goal tr 15-20, add augmentin 2. HCV VL and fu with me as outpt Discussed with Dr Josue
[2017-10-25] MEDS: Amoxicillin/Clavulanate TAB* 500 MG PO SCH (20:42)
[2017-10-26] MEDS: Vancomycin(*) 1,000 MG in NS 0.9% 250 ML* 250 ML IVPB SCH ×3 (01:47→17:26)
[2017-10-26 06:30] LABS: Hematocrit 40 % (35-47); Hemoglobin 13.5 g/dl (12.0-16.0); Mean Corpuscular HGB Conc 34 g/dl (31-36); Mean Corpuscular Hemoglobin 32 pg (27-31); Mean Corpuscular Volume 93 fL (80-97); Mean Platelet Volume 7 um3 (7.4-10.4); Platelet Count 367 10^3/ul (150-450); Red Blood Count 4.24 10^6/ul (4.0-5.4); Red Cell Distribution Width 12 % (10.5-15); White Blood Count 5.9 10^3/ul (3.5-10.8)
[2017-10-26 06:47] LABS: EGFR Non-African American 118.1 (>60)
--- NOTE | 2017-10-26 08:46 | PN ---
Progress Note - Progress Note Date of Service: 10/26/17 SOAP: Subjective: CC: right arm abscess HPI: 32 year old woman with IVDU in brief remission, right arm abscess s/p I&D. Right arm pain and swelling improving, still painful at incision. No fever, rash, or diarrhea. Objective: Vital Signs Temp 36.5 C 10/26/17 03:11 Pulse 69 10/26/17 03:11 Resp 16 10/26/17 03:11 BP 114/66 10/26/17 03:11 Pulse Ox 99 10/26/17 03:11 Intake & Output 10/25/17 10/26/17 10/26/17 18:59 06:59 18:59 Intake Total 200 2220 Output Total 650 0 Balance -450 2220 Intake: IV Fluids 280 ABX - VANCOMYCIN 280 Oral 200 1940 Output: Urine 650 0 Other: Estimated Void Medium # Voids 2 Gen:awake, no distress HEENT:PERRL, no thrush Heart:RRR no murmur Lungs:CTA BL Abd:+BS NTND soft Skin: no rash MSK: R forearm incision serous drainage Laboratory Results - last 24 hr 10/23/17 10/25/17 10/26/17 18:26 09:30 05:53 WBC 5.9 RBC 4.24 Hgb 13.5 Hct 40 MCV 93 MCH 32 H MCHC 34 RDW 12 Plt Count 367 MPV 7 L Sodium Potassium Chloride Carbon Dioxide Anion Gap BUN Creatinine Est GFR ( Amer) Est GFR (Non-Af Amer) BUN/Creatinine Ratio Glucose Calcium Vancomycin Trough 13.5 Hepatitis B Antibody Reactive A Hep Bs Antigen Nonreactive Hep Bs Antibody, Quant 27.38 Hepatitis C Antibody High reactive A HIV 1&2 Antibody Nonreactive 10/26/17 05:53 WBC RBC Hgb Hct MCV MCH MCHC RDW Plt Count MPV Sodium 137 Potassium 3.9 Chloride 106 Carbon Dioxide 24 Anion Gap 7 BUN 11 Creatinine 0.59 Est GFR ( Amer) 151.9 Est GFR (Non-Af Amer) 118.1 BUN/Creatinine Ratio 18.6 Glucose 92 Calcium 9.2 Vancomycin Trough Hepatitis B Antibody Hep Bs Antigen Hep Bs Antibody, Quant Hepatitis C Antibody HIV 1&2 Antibody Assessment: 1. right forearm abscess s/p I&D 2. IVDU in brief remission 3. HCV Ab+ Plan: 1. continue vancomycin goal tr 15-20, augmentin 500 mg PO BID; wound packing per surgery 2. HCV VL and fu with me as outpt 35 minutes floor time >50% face to face discussing abx plans and HCV follow up
[2017-10-26] MEDS: Amoxicillin/Clavulanate TAB* 500 MG PO SCH ×2 (08:48→21:59)
[2017-10-26] MEDS: oxyCODONE/Acetamin 5/325 MG* TAB PO PRN ×2 (08:48→22:00)
--- NOTE | 2017-10-26 09:37 | PN ---
Progress Note - Progress Note Date of Service: 10/26/17 SOAP: Subjective:POD#3 s/p I&D right forearm abscess less pain and swelling [] Objective:afebrile;Right forearm wound clean, granulating and saul,most of erythema resolved;edema of hand resolving;wound irrigated with NS,1/2" Nugauze packed into central portion and then placed on remainder of wound;4x4s and lázaro wrap applied;pt tolerated well Vital Signs - 24 hr 10/25/17 10/25/17 10/25/17 11:07 12:01 16:11 Temperature 98.4 F 98.5 F Pulse Rate 79 74 Respiratory 16 16 18 Rate Blood Pressure 124/69 123/63 (mmHg) O2 Sat by Pulse 100 100 Oximetry 10/25/17 10/25/17 10/25/17 19:31 20:41 20:44 Temperature 98.0 F Pulse Rate 93 Respiratory 18 17 17 Rate Blood Pressure 139/86 (mmHg) O2 Sat by Pulse 100 Oximetry 10/25/17 10/26/17 10/26/17 23:21 03:11 07:20 Temperature 98.7 F 97.7 F 98.8 F Pulse Rate 83 69 68 Respiratory 18 16 16 Rate Blood Pressure 121/76 114/66 103/59 (mmHg) O2 Sat by Pulse 100 99 97 Oximetry 10/26/17 10/26/17 08:00 08:48 Temperature Pulse Rate Respiratory 16 16 Rate Blood Pressure (mmHg) O2 Sat by Pulse Oximetry Laboratory Results - last 24 hr 10/25/17 10/26/17 10/26/17 09:30 05:53 05:53 WBC 5.9 RBC 4.24 Hgb 13.5 Hct 40 MCV 93 MCH 32 H MCHC 34 RDW 12 Plt Count 367 MPV 7 L Sodium 137 Potassium 3.9 Chloride 106 Carbon Dioxide 24 Anion Gap 7 BUN 11 Creatinine 0.59 Est GFR ( Amer) 151.9 Est GFR (Non-Af Amer) 118.1 BUN/Creatinine Ratio 18.6 Glucose 92 Calcium 9.2 Vancomycin Trough 13.5 [] Assessment:improving on abx [] Plan:antibiotics per ID we will continue local wound care elevate R hand []
--- NOTE | 2017-10-26 15:19 | PN ---
Subjective Date of Service: 10/26/17 Interval History: Pt with improved level of pain and per RN reduced erythema and swelling. [place]. Last saw Dr. Ken José in [place] through "[facility]" last year. Set up with Medicaid. Objective Active Medications: Amoxicillin/Clavulanate Potassium (Augmentin Tab*) 500 mg PO BID DONALD Last Admin: 10/26/17 08:48 Dose: 500 mg Device (Nicotine Mouth Piece*) 1 each INH .USE WITH NICOTROL PRN PRN Reason: CRAVING Last Admin: 10/24/17 22:42 Dose: 1 each Vancomycin HCl 1,000 mg/ (Sodium Chloride) 250 mls @ 166.667 mls/hr IVPB Q8H DONALD Last Admin: 10/26/17 09:54 Dose: 166.667 mls/hr Nicotine (Nicotine Inhaler*) 10 mg INH Q2H PRN PRN Reason: CRAVING Last Admin: 10/24/17 22:42 Dose: 10 mg Oxycodone/Acetaminophen (Percocet 5/325 Tab*) 1 tab PO Q4H PRN PRN Reason: PAIN Last Admin: 10/26/17 08:48 Dose: 1 tab Pharmacy Consult (Vancomycin Per Pharmacy*) 1 note FOLLOW UP . PRN PRN Reason: PER PROTOCOL Vital Signs - 8 hr 10/26/17 10/26/17 10/26/17 07:20 08:00 08:48 Temperature 98.8 F Pulse Rate 68 Respiratory 16 16 16 Rate Blood Pressure 103/59 (mmHg) O2 Sat by Pulse 97 Oximetry 10/26/17 10/26/17 10:49 11:49 Temperature 99.0 F Pulse Rate 76 Respiratory 16 16 Rate Blood Pressure 120/62 (mmHg) O2 Sat by Pulse 100 Oximetry Oxygen Devices in Use Now: None Appearance: NAD Neck: NL Appearance and Movements; NL JVP, Trachea Midline Respiratory: Symmetrical Chest Expansion and Respiratory Effort, Clear to Auscultation Cardiovascular: NL Sounds; No Murmurs; No JVD, RRR Abdominal: NL Sounds; No Tenderness; No Distention, No Hepatosplenomegaly Extremities: No Edema, No Clubbing, Cyanosis, - - left forearm bandaged w/o strikethru Skin: No Rash or Ulcers, No Nodules or Sclerosis Neurological: Alert and Oriented x 3, NL Sensation, NL Muscle Strength and Tone Nutrition: Taking PO's Result Diagrams: 10/26/17 05:53 10/26/17 05:53 Additional Lab and Data: Laboratory Results - last 24 hr 10/26/17 10/26/17 05:53 05:53 WBC 5.9 RBC 4.24 Hgb 13.5 Hct 40 MCV 93 MCH 32 H MCHC 34 RDW 12 Plt Count 367 MPV 7 L Sodium 137 Potassium 3.9 Chloride 106 Carbon Dioxide 24 Anion Gap 7 BUN 11 Creatinine 0.59 Est GFR ( Amer) 151.9 Est GFR (Non-Af Amer) 118.1 BUN/Creatinine Ratio 18.6 Glucose 92 Calcium 9.2 Microbiology and Other Data: Microbiology 10/23/17 20:24 Blood Venous Aerobic Blood Culture - Preliminary No Growth Day 2 10/23/17 20:24 Blood Venous Anaerobic Blood Culture - Final Staphylococcus Epidermidis 10/23/17 20:24 Blood Venous Blood MRSA/MSSA (PCR) - Final Mrsa Negative S.aureus Negative 10/23/17 20:30 Wound Gram Stain - Final 10/23/17 20:30 Wound Wound Culture - Final No Growth Day 2 Assess/Plan/Problems-Billing Ms Rodriguez is a 32 yo homeless F who has a past h/o IVDA who states she "slipped up" last week and injected methadone who no presents to the ER for the 3rd time with worsened erythema and was found to have an abscess that has now been I&D' d. [facility] in 08/09 BCx. Hepatitis C positive. - Patient Problems (1) Cellulitis and abscess of other specified site Current Visit: Yes Status: Acute Code(s): L03.818 - CELLULITIS OF OTHER SITES; L02.818 - CUTANEOUS ABSCESS OF OTHER SITES SNOMED Code(s): 12606515 Comment: cellulitis and abscess of the R forearm. s/p I&D'd in the ER by Dr. Marks 10/24. Continue vancomycin and augmentin per ID. So far the culture is negative and the gram stain shows no organisms. Blood cultures show one of two bottles of staph epidermidis. (2) DVT prophylaxis Current Visit: Yes Status: Acute Code(s): GAA6586 - SNOMED Code(s): 806342553 Comment: ambulation (3) IV drug abuse Current Visit: Yes Status: Acute Code(s): F19.10 - OTHER PSYCHOACTIVE SUBSTANCE ABUSE, UNCOMPLICATED SNOMED Code(s): 024875577 Comment: Continue to encourage abstinence. (4) Hepatitis C Current Visit: Yes Status: Acute Comment: f/u with Dr. Zhou as an outpatient. (5) Full code status Current Visit: Yes Status: Acute Code(s): Z78.9 - OTHER SPECIFIED HEALTH STATUS SNOMED Code(s): 213839790 Status and Disposition: medicine inpatient.
[2017-10-27] MEDS: Vancomycin(*) 1,000 MG in NS 0.9% 250 ML* 250 ML IVPB SCH ×2 (02:15→09:41)
[2017-10-27] MEDS: oxyCODONE/Acetamin 5/325 MG* TAB PO PRN (09:40)
[2017-10-27] MEDS: Amoxicillin/Clavulanate TAB* 500 MG PO SCH (09:40)
--- NOTE | 2017-10-27 10:19 | PN ---
Progress Note - Progress Note Date of Service: 10/27/17 SOAP: Subjective: CC: right arm abscess HPI: 32 year old woman with IVDU in brief remission, right arm abscess s/p I&D. Right arm pain and swelling improving, ROM getting better. Feels well. Wants to go home. Objective: Vital Signs Temp 37.2 C 10/27/17 07:25 Pulse 67 10/27/17 07:25 Resp 16 10/27/17 09:40 BP 117/68 10/27/17 07:25 Pulse Ox 99 10/27/17 07:25 Intake & Output 10/26/17 10/27/17 10/27/17 18:59 06:59 18:59 Intake Total 345 1680 360 Balance 345 1680 360 Intake: IV Fluids 280 ABX - VANCOMYCIN 280 Oral 345 1400 360 Other: Estimated Void Medium Medium # Bowel Movements 0 0 # Voids 3 1 Gen:awake, no distress HEENT:PERRL, no thrush Heart:RRR no murmur Lungs:CTA BL Abd:+BS NTND soft Skin: no rash MSK: R forearm incision serous drainage; mild edema; Right wrist ROM normal Microbiology 10/23/17 20:24 Aerobic Blood Culture - Preliminary Blood Venous No Growth Day 3 Anaerobic Blood Culture - Final Staphylococcus Epidermidis Blood MRSA/MSSA (PCR) - Final Mrsa Negative S.aureus Negative Assessment: 1. right forearm abscess s/p I&D 2. IVDU in brief remission 3. HCV Ab+ Plan: 1. doxycycline 100 mg po bid and augmentin 500 mg PO BID for 2 more weeks wound packing per surgery 2. HCV VL and fu with me as outpt
[2017-10-27 11:44] VITALS: BP 120/71
--- NOTE | 2017-10-27 12:24 | PN ---
Progress Note - Progress Note Date of Service: 10/27/17 SOAP: Subjective: Patient was seen and examined earlier this morning. Reports feeling much better. Minimal pain at right forearm. Denies fever or chills. ID consult appreciated, Augmentin was added to Vanco. She wants to go home. Objective: Awake and alert, comfortable in bed VSS, afebrile Right forearm dressing and packing removed. I&D site on upper posterior aspect of R forearm with a clean wound. No discharge or bleeding noted. Good pink granulation tissue at the base. A small piece of packing gauze was placed on a fairly superficial wound. 4x4 dressing and Kerlex was applied to forearm. Assessment: A 32 y/o female, s/p I&D of right forearm abscess, doing well on Abx Plan: At this point, no further packing is indicated. Patient may cover wound with Bacitracin or Triple antibiotic ointment and keep it covered with dry dressing once daily. F/U with [facility] next week for wound check. PO antibiotics upon discharge per medical team.
--- NOTE | 2017-10-28 02:23 | DS ---
DISCHARGE SUMMARY: DATE OF ADMISSION: 10/23/17 DATE OF DISCHARGE: 10/27/17 ADMITTING PROVIDER: Lyndsay Garcia NP CONSULTING SURGEON: General surgeon, Dr. Marks. PRIMARY CARE PROVIDER: None. Last saw Dr. José in [place] a year ago, now establishing with Dr. Vladislav Geiger. CONSULTING INFECTIOUS DISEASE: Dr. Eliud Zhou. CHIEF COMPLAINT: Right upper extremity pain and redness. PRINCIPAL DIAGNOSIS: Right forearm abscess, status post I and D. HISTORY OF PRESENT ILLNESS AND HOSPITAL COURSE: Samaria Rodriguez is a 32-year-old female with past medical history significant for relapsed IV drug use and homelessness. She presented to the emergency department on 10/20/17 after developing cellulitis of her right arm and was given IV clindamycin and margins of the cellulitis were marked. She was discharged with oral clindamycin prescription, but returned later on 10/11/17 to the ED again saying she could not afford the medication. The redness had progressed 1 cm outside the outlined areas. The frequency was adjusted and she was discharged again, but she returned on day of admission, 10/23/17, with continued progression with now some fluctuant areas of forearm. Dr. Marks was consulted and he did bedside I and D with conscious sedation in the emergency room. She was started on vancomycin and Infectious Disease was consulted. Culture of that wound has had no growth to date for 2 days. No organisms were seen on Gram stain. She continued to have dressing changes with General Surgery and the wound became less erythematous. Dr. Zhou is recommending discharge with additional 14 days of doxycycline at 100 mg p.o. b.i.d. and Augmentin 500 mg p.o. b.i.d. She should follow up with Dr. Marks, Dr. Zhou, reestablish with a PCP, recommended Dr. Vladislav Geiger. Of note, she also had HIV testing done here, which was negative. She did have a high reactive hepatitis C antibody. She will follow with Dr. Zhou for that issue. Her hepatitis B antibody was reactive. The surface antigen was nonreactive, though the hepatis B surface antibody quantitative was 27.4. Of note, she attested to being homeless, [place] [facility]. She got signed up with Medicaid while she was here in the hospital and Social Work and dependency case manager worked with her daily. She plans to move in with her sister who lives locally in [place] in the short term and follow-up with with [facility] for further housing resources in the medium to registered account administrator. DISCHARGE MEDICATIONS: Include: 1. Augmentin 500 mg p.o. b.i.d. for 14 days, (new). 2. Doxycycline 100 mg p.o. b.i.d. for 14 days, (new). 3. Ibuprofen 600 mg p.o. q.6 hours p.r.n. 4. Triple antibiotic (neomycin, bacitracin and polymyxin B) ointment to be applied to right forearm daily after shower, (new). DISCHARGE DIET: No restrictions. ACTIVITY LEVEL: No restrictions. FOLLOWUP: Please follow up with Dr. Vladislav Geiger, new primary care physician , as soon as can be arranged. Dr. Rene Marks, General Surgery, within [address] Eliud Zhou within 1 to 2 weeks of discharge. TIME SPENT ON DISCHARGE: 35 minutes. [id number]/[facility] #: [id number] [facility] [place]
== END 2017-10-27 12:35 | disposition home or self-care (01) | DRG 364 ==
LOC: ED 13:37 → SSU 19:39 → ED 21:49
PROVIDERS: ADMIT Pediatrics; ATTEND Internal Medicine
PROC: 0J9G0ZZ Drainage of Right Lower Arm Subcutaneous Tissue and Fascia, Open Approach (ICD-10-PCS; principal; 2017-10-23)
DX: L02.413 Cutaneous abscess of right upper limb (principal); B95.7 Other staphylococcus as the cause of diseases classified elsewhere; L03.113 Cellulitis of right upper limb; F11.11 Opioid abuse, in remission; F17.210 Nicotine dependence, cigarettes, uncomplicated; Z82.49 Family history of ischemic heart disease and other diseases of the circulatory system; Z72.89 Other problems related to lifestyle; Z59.0 Homelessness
CPT/HCPCS: 36415; 80048; 80053; 80202; 85025; 85027; 85049; 86703; 86706; 86803; 87040; 87070; 87077; 87150; 87186; 87205; 87340; 99284; A9270-GY; J1170; J2250; J3370

== ENCOUNTER 2022-01-28 15:50 | Inpatient (IN) ==
[2022-01-28] MEDS ORDERED: NS 0.9% 1000 ml BAG 1,000 ML IV ONE (17:14)
[2022-01-28] MEDS ORDERED: Ondansetron 4 mg VIAL 2 MG/ML 2 ml VIAL IV ONE (17:14)
[2022-01-28] MEDS ORDERED: Morphine 4 MG/ML VIAL (1 ml) IV ONE ×4 (17:14→21:19)
[2022-01-28 17:40] LABS: Hematocrit 50 % (35-47); Hemoglobin 17.1 g/dL (12.0-16.0); Mean Corpuscular HGB Conc 34 g/dL (31-36); Mean Corpuscular Hemoglobin 30 pg (27-31); Mean Corpuscular Volume 87 fL (80-97); Platelet Count 437 10^3/uL (150-450); Red Blood Count 5.76 10^6 /uL (3.70-4.87); Red Cell Distribution Width 13 % (10-15); White Blood Count 17.5 10^3/uL (3.5-10.8)
[2022-01-28 18:31] LABS: RBC Morphology Normal (Normal)
[2022-01-28 18:32] LABS: ABS Lymphocytes 1.2 10^3/ul (1.0-4.8); ABS Monocytes 2.1 10^3/ul (0-0.8); ABS Neutrophils 14.3 10^3/ul (1.5-7.7); ALT 17 U/L (7-52); AST 17 U/L (13-39); Albumin 4.3 g/dL (3.2-5.2); Albumin/Globulin Ratio 1.4 (1-3); Alkaline Phosphatase 89 U/L (35-149); Anion Gap 14 mmol/L (2-11); Blood Urea Nitrogen 30 mg/dL (6-24); C Reactive Protein 111.96 mg/L (<8.01); CO2 Carbon Dioxide 22 mmol/L (22-32); Calcium 9.6 mg/dL (8.6-10.3); Chloride 95 mmol/L (101-111); Glucose 187 mg/dL (70-100); Lipase < 10 U/L (11.0-82.0); Lymphocyte % 6.6 %; Potassium 3.2 mmol/L (3.5-5.0); Sodium 131 mmol/L (135-145); Total Protein 7.3 g/dL (6.4-8.9)
[2022-01-28 18:38] LABS: HCG Pregnancy < 0.60 mIU/mL
[2022-01-28] MEDS ORDERED: Iohexol 300 (CONTRAST) 10 ML SDV IV ONE (19:37)
[2022-01-28] MEDS ORDERED: Iohexol 350 (CONTRAST) 500 ML MDV IV ONE (19:51)
[2022-01-28] MEDS ORDERED: Piperacillin/Tazobac ADVAN 3.375 GM in NS 0.9% 100 ml BAG 100 ML IV ONE (21:19)
[2022-01-28] MEDS ORDERED: Vancomycin 1,500 MG in NS 0.9% 250 ml 250 ML IVPB ONE (21:27)
[2022-01-29] MEDS ORDERED: Albuterol HFA INHALER 8 gm MDI INH PRN (05:15)
[2022-01-29] MEDS ORDERED: Polyethylene Glycol 3350 17 GM PACKET PO ONE (05:15)
[2022-01-29 09:04] LABS: Hematocrit 47 % (35-47); Hemoglobin 15.5 g/dL (12.0-16.0); Mean Corpuscular HGB Conc 33 g/dL (31-36); Mean Corpuscular Hemoglobin 29 pg (27-31); Mean Corpuscular Volume 89 fL (80-97); Mean Platelet Volume 6.9 fL (7.4-10.4); Platelet Count 272 10^3/uL (150-450); Red Blood Count 5.32 10^6 /uL (3.70-4.87); Red Cell Distribution Width 13 % (10-15); White Blood Count 14.2 10^3/uL (3.5-10.8)
[2022-01-29 09:29] LABS: Albumin 3.8 g/dL (3.2-5.2); Albumin/Globulin Ratio 1.4 (1-3); Calcium 8.4 mg/dL (8.6-10.3); Globulin 2.7 g/dL (2-4); Potassium 3.2 mmol/L (3.5-5.0); Total Bilirubin 0.5 mg/dL (0.2-1.0); Total Protein 6.5 g/dL (6.4-8.9); eGFR CKD-EPI 111.1 (>60)
[2022-01-29 09:32] LABS: ABS Lymphocytes 1.4 10^3/ul (1.0-4.8); ABS Monocytes 1.9 10^3/ul (0-0.8); ABS Neutrophils 10.8 10^3/ul (1.5-7.7); Lymphocyte % 9.8 %
[2022-01-29] MEDS: Polyethylene Glycol 3350 17 GM PACKET PO SCH ×2 (09:32→20:37)
[2022-01-29] MEDS: Venlafaxine XR 75 mg PO SCH (09:32)
[2022-01-29] MEDS: Magnesium Hydroxide LIQ 30 ML UDC PO SCH ×2 (09:32→20:37)
[2022-01-29] MEDS ORDERED: Zosyn per Pharmacy NOTE FOLLOW UP SCH (10:00)
[2022-01-29] MEDS ORDERED: Zosyn 3.375 GM IV - ED ONCE IV ONE (11:30)
[2022-01-29] MEDS ORDERED: Lidocaine 2% PF 5 ML VIAL ONE (12:56)
[2022-01-29] MEDS ORDERED: Midazolam 2 mg/2 ml VIAL 1 mg/ml 2 ml VIAL (2 mg) ONE (12:56)
[2022-01-29] MEDS ORDERED: Rocuronium 50 mg VIAL 10 mg/ml 5 ml VIAL (50 mg) ONE ×2 (12:56→14:34)
[2022-01-29] MEDS ORDERED: fentaNYL 100 mcg/2 ml 50 MCG/ML VIAL ONE (12:56)
[2022-01-29] MEDS ORDERED: Propofol 10 MG/ML 20 ML BTL ONE (12:56)
[2022-01-29 13:03] LABS: Urine Appearance Cloudy; Urine Bilirubin Negative (Negative); Urine Blood Negative (Negative); Urine Color Yellow; Urine Glucose Negative (Negative); Urine Ketones Negative (Negative); Urine Nitrite Negative (Negative); Urine Protein 1+(30 mg/dL) (Negative); Urine Specific Gravity 1.026 (1.002-1.030); Urine Urobilinogen Negative (Negative)
[2022-01-29 13:15] LABS: Urine Bacteria Absent (Absent); Urine Red Blood Cell Absent (Absent); Urine Squamous Epithelial Cell Present (Absent); Urine White Blood Cell Absent (Absent)
[2022-01-29] MEDS ORDERED: Bupivacaine 0.25% w/EPI 10 ML SDV ONE (13:35)
[2022-01-29] MEDS ORDERED: Bupivacaine 0.25% SDV 30 ML ONE (13:36)
[2022-01-29] MEDS ORDERED: metroNIDAZOLE IV 500 MG/100ML 500 MG/100 ML BAG ONE (13:49)
[2022-01-29] MEDS ORDERED: metroNIDAZOLE IV 500 MG/100ML 100 ML IVPB ONE (14:00)
[2022-01-29] MEDS ORDERED: HYDROmorphone 0.5 MG/0.5 ML SYRINGE ONE (14:25)
[2022-01-29 14:41] LABS: PCO2 Arterial 54 mmHg (35-45); PO2 Arterial 149 mmHg (80-100)
[2022-01-29] MEDS ORDERED: Ondansetron 4 mg VIAL 2 MG/ML 2 ml VIAL ONE (14:50)
[2022-01-29] MEDS ORDERED: Dexamethasone IV 4 MG/ML VIAL 1 ml VIAL ONE (14:50)
[2022-01-29] MEDS ORDERED: Acetaminophen IV 1 GM/100ML 100 ML IV ONE (15:06)
[2022-01-29] MEDS ORDERED: HYDROmorphone 1 MG/1 ML SYRINGE IV SLOW PU PRN (15:37)
[2022-01-29] MEDS ORDERED: Ondansetron 4 mg VIAL 2 MG/ML 2 ml VIAL IV PRN (15:38)
[2022-01-29] MEDS ORDERED: fentaNYL 100 mcg/2 ml 50 MCG/ML VIAL IV PRN (15:38)
[2022-01-29] MEDS ORDERED: Naloxone 0.4 mg VIAL 0.4 mg/ml 1 ml VIAL IV PRN (15:38)
[2022-01-29] MEDS ORDERED: Acetaminophen IV 1 GM/100ML 100 ML IV SCH (15:45)
[2022-01-29] MEDS: ZOSYN 3.375 GM Q8H per EXTENDED INFUSION IV SCH ×2 (19:44→23:53)
[2022-01-29] MEDS: Acetaminophen IV 1 GM/100ML 100 ML IV SCH (22:00)
[2022-01-30] MEDS: Ondansetron 4 mg VIAL 2 MG/ML 2 ml VIAL IV PRN (00:28)
[2022-01-30] MEDS: Acetaminophen IV 1 GM/100ML 100 ML IV SCH ×4 (04:29→22:01)
[2022-01-30 06:28] LABS: Hematocrit 36 % (35-47); Hemoglobin 11.7 g/dL (12.0-16.0); Mean Corpuscular HGB Conc 33 g/dL (31-36); Mean Corpuscular Hemoglobin 29 pg (27-31); Mean Corpuscular Volume 89 fL (80-97); Mean Platelet Volume 6.9 fL (7.4-10.4); Platelet Count 267 10^3/uL (150-450); Red Blood Count 4.02 10^6 /uL (3.70-4.87); Red Cell Distribution Width 13 % (10-15); White Blood Count 12.9 10^3/uL (3.5-10.8)
[2022-01-30 06:35] LABS: ABS Eosinophils 0.1 10^3/ul (0-0.6); ABS Monocytes 1.6 10^3/ul (0-0.8); ABS Neutrophils 9.2 10^3/ul (1.5-7.7); Eosinophil % 0.4 %; Lymphocyte % 15.4 %
[2022-01-30 07:07] LABS: Calcium 7.5 mg/dL (8.6-10.3); Potassium 3.2 mmol/L (3.5-5.0); eGFR CKD-EPI 114.9 (>60)
[2022-01-30] MEDS: ZOSYN 3.375 GM Q8H per EXTENDED INFUSION IV SCH ×2 (08:14→16:13)
[2022-01-30] MEDS ORDERED: Pantoprazole VIAL 40 MG VIAL IV SCH (09:00)
[2022-01-30] MEDS: Polyethylene Glycol 3350 17 GM PACKET PO SCH ×2 (09:00→22:01)
[2022-01-30] MEDS: Magnesium Hydroxide LIQ 30 ML UDC PO SCH ×2 (09:00→22:01)
[2022-01-30] MEDS: Venlafaxine XR 75 mg PO SCH (09:01)
[2022-01-30] MEDS: KCL 20 MEQ/100 ML IVPREMIX 20 MEQ/100 ML BAG IV SCH ×3 (11:50→19:42)
[2022-01-31] MEDS: ZOSYN 3.375 GM Q8H per EXTENDED INFUSION IV SCH ×3 (00:07→15:41)
[2022-01-31 02:59] LABS: TSH Ultra Thyroid Stim Horm 1.23 mcIU/mL (0.34-5.60)
[2022-01-31] MEDS: Acetaminophen IV 1 GM/100ML 100 ML IV SCH ×4 (04:32→21:08)
[2022-01-31 06:19] LABS: Hepatitis C Antibody Reactive (Negative)
[2022-01-31] MEDS: Polyethylene Glycol 3350 17 GM PACKET PO SCH ×2 (09:17→21:08)
[2022-01-31] MEDS: Venlafaxine XR 75 mg PO SCH (09:19)
[2022-01-31] MEDS: Magnesium Hydroxide LIQ 30 ML UDC PO SCH ×2 (09:22→21:08)
[2022-01-31] MEDS ORDERED: Potassium Chlor 20 meq TAB.ER PO ONE (17:33)
[2022-01-31] MEDS: Ondansetron 4 mg VIAL 2 MG/ML 2 ml VIAL IV PRN (18:58)
[2022-02-01] MEDS ORDERED: NS 0.9% 100 ml BAG 100 ML ONE (01:05)
[2022-02-01] MEDS: ZOSYN 3.375 GM Q8H per EXTENDED INFUSION IV SCH ×2 (01:24→08:53)
[2022-02-01] MEDS: Acetaminophen IV 1 GM/100ML 100 ML IV SCH ×3 (04:25→15:16)
[2022-02-01 06:38] LABS: ABS Eosinophils 0.2 10^3/ul (0-0.6); ABS Lymphocytes 2.1 10^3/ul (1.0-4.8); ABS Monocytes 0.8 10^3/ul (0-0.8); ABS Neutrophils 4.4 10^3/ul (1.5-7.7); Eosinophil % 2.4 %; Hematocrit 33 % (35-47); Hemoglobin 10.8 g/dL (12.0-16.0); Lymphocyte % 27.5 %; Mean Corpuscular HGB Conc 33 g/dL (31-36); Mean Corpuscular Hemoglobin 30 pg (27-31); Mean Corpuscular Volume 89 fL (80-97); Mean Platelet Volume 6.4 fL (7.4-10.4); Platelet Count 322 10^3/uL (150-450); Red Blood Count 3.64 10^6 /uL (3.70-4.87); Red Cell Distribution Width 13 % (10-15); White Blood Count 7.5 10^3/uL (3.5-10.8)
[2022-02-01 07:11] LABS: Calcium 8.1 mg/dL (8.6-10.3); Magnesium 2.8 mg/dL (1.9-2.7); Potassium 3.8 mmol/L (3.5-5.0); eGFR CKD-EPI 114.9 (>60)
[2022-02-01] MEDS: Polyethylene Glycol 3350 17 GM PACKET PO SCH (08:13)
[2022-02-01] MEDS: Magnesium Hydroxide LIQ 30 ML UDC PO SCH (08:14)
[2022-02-01] MEDS: Venlafaxine XR 75 mg PO SCH (08:16)
[2022-02-01] MEDS: Ondansetron 4 mg VIAL 2 MG/ML 2 ml VIAL IV PRN (10:28)
[2022-02-01 15:38] VITALS: BP 106/67
== END 2022-02-01 16:45 | disposition home or self-care (01) | DRG 229 ==
LOC: ED 15:50 → SUATTDRO 01-29 04:59 → EDHOLD 01-29 04:59 → SSU 01-29 04:59
PROVIDERS: ADMIT Internal Medicine; ATTEND Internal Medicine